=== PATIENT | female | born 1950 | race Two or more races ===

== ENCOUNTER → 2024-08-31 | Outpatient (CLI) | payer MEDICARE, MEDICAID, SELFPAY ==
[2024-08-30 13:34] LABS: Basophils # (Auto) 0.1 Thou/mm3 (0.0-0.2); Basophils % (Auto) 1 % (0-2.5); Eosinophils # (Auto) 0.2 Thou/mm3 (0.0-0.5); Eosinophils % (Auto) 2 % (0-10); Hematocrit 34.7 % (36.0-46.0); Hemoglobin 11.9 g/dL (12.0-16.0); Immature Granulocytes % (Auto) 0 % (0-0); Immature Granulocytes Auto 0.02 Thou/mm3 (0.00-0.00); Lymphocytes # (Auto) 1.6 Thou/mm3 (1.0-4.8); Lymphocytes % (Auto) 21 % (10-50); Mean Corpuscular HGB Conc 34.3 g/dl (31.0-37.0); Mean Corpuscular Hemoglobin 33.4 pg (25.0-35.0); Mean Corpuscular Volume 98 fL (80-100); Monocytes # (Auto) 0.6 Thou/mm3 (0.0-0.8); Monocytes % (Auto) 7 % (0-12); Neutrophils # (Auto) 5.4 Thou/mm3 (1.8-7.7); Neutrophils % (Auto) 69 % (37-80); Nucleated Red Blood Cell % 0 /100 WBC (0); Platelet Count 138 Thou/mm3 (140-440); RDW Standard Deviation 46.5 fL (36.4-46.3); Red Blood Count 3.56 Miln/mm3 (4.00-5.20); White Blood Count 7.9 Thou/mm3 (3.6-11.0)
[2024-08-30 13:39] LABS: Partial Thromboplastin Time 30.3 Seconds (22.0-36.0); Prothrombin Time 11.3 Seconds (9.0-12.2)
--- NOTE | 2024-08-31 08:00 | XR_ITS ---
Examination: Thyroid sonography complete TECHNIQUE: Grayscale sonographic high resolution grayscale sonographic images thyroid lobes are carful analysis Exam date and time: August 31, 2024 0917 hours INDICATIONS: History thyroid nodules and thyroid biopsy FINDINGS: Right thyroid 7.0 x 3.3 x 3.3 cm Multiple right thyroid nodules, the largest with vascular in the lower pole right thyroid 4.3 x 3.6 x 3.9 cm Left thyroid 5.6 x 3.2 x 2.4 cm Thyroid nodules, including lower pole nodule 6 x 3 x 7 mm IMPRESSION: Bilateral thyroid nodules Vascular lower pole right thyroid nodule 4.3 x 3.6 x 3.9 cm, consider ultrasound-guided fine-needle aspiration of this nodule to exclude malignant cytology
--- NOTE | 2024-08-31 08:30 | XR_ITS ---
Examination: Ultrasound-guided fine needle percutaneous aspiration thyroid nodule, right thyroid nodule. Thyroid sonography, limited Exam date and time: August 31, 2024 0930 hours INDICATIONS: Thyroid sonogram August 31, 2024 large vascular lower pole right thyroid nodule. Technique: A timeout was completed verifying correct patient, procedure, site, positioning and special equipment if applicable. The patient was placed in supine position for the thyroid fine needle percutaneous aspiration The patient's right neck was prepped and draped in sterile fashion. Maximum barrier sterile technique, hand hygiene, ultrasound sterile technique. 1% lidocaine was used to anesthetize the skin and subcutaneous tissues to the patient's right thyroid nodule. Multiple fine needle aspirations were performed and multiple thyroid specimens placed in preservative according to the [employer] protocol. Specimens appears satisfactory. The attending radiologist was present for the entire procedure. Estimated blood loss 3 cc. The patient tolerated the procedure well and there were no complications. Impression: Successful ultrasound-guided fine-needle percutaneous aspiration thyroid nodule, lower pole right thyroid nodule.
== END | disposition home or self-care (01) ==
PROVIDERS: Radiology Diagnostic Radiology; PCP Family Medicine; Referring Provider Family Medicine; Visit Provider Family Medicine
DX: E04.2 Nontoxic multinodular goiter (principal); Z01.812 Encounter for preprocedural laboratory examination
CPT/HCPCS: 10005; 36415; 76536; 85025; 85610; 85730

== ENCOUNTER → 2024-11-16 | Outpatient (CLI) | payer MEDICARE, MEDICAID, SELFPAY ==
[2024-11-16 10:17] LABS: Collection Type, Urine Clean Catch
[2024-11-16 10:41] LABS: Basophils # (Auto) 0.1 Thou/mm3 (0.0-0.2); Basophils % (Auto) 1 % (0-2.5); Eosinophils # (Auto) 0.2 Thou/mm3 (0.0-0.5); Eosinophils % (Auto) 2 % (0-10); Hematocrit 37.3 % (36.0-46.0); Hemoglobin 12.5 g/dL (12.0-16.0); Immature Granulocytes % (Auto) 0 % (0-0); Immature Granulocytes Auto 0.03 Thou/mm3 (0.00-0.00); Lymphocytes # (Auto) 1.7 Thou/mm3 (1.0-4.8); Lymphocytes % (Auto) 22 % (10-50); Mean Corpuscular HGB Conc 33.5 g/dl (31.0-37.0); Mean Corpuscular Volume 95 fL (80-100); Monocytes # (Auto) 0.5 Thou/mm3 (0.0-0.8); Monocytes % (Auto) 7 % (0-12); Neutrophils # (Auto) 5.5 Thou/mm3 (1.8-7.7); Neutrophils % (Auto) 69 % (37-80); Nucleated Red Blood Cell % 0 /100 WBC (0); Platelet Count 157 Thou/mm3 (140-440); RDW Standard Deviation 48.2 fL (36.4-46.3); Red Blood Count 3.91 Miln/mm3 (4.00-5.20); White Blood Count 8.1 Thou/mm3 (3.6-11.0)
[2024-11-16 10:51] LABS: B-Type Natriuretic Peptide 55 pg/mL (0-100)
[2024-11-16 11:01] LABS: Alanine Aminotransferase 11 U/L (10-49); Albumin, Serum 4.6 gm/dL (3.4-4.8); Alkaline Phosphatase 75 U/L (46-116); Anion Gap 10 (7-16); Aspartate Amino Transferase 16 U/L (0-34); BUN/Creatinine Ratio 17 Ratio (12-20); Bilirubin,Direct 0.2 mg/dL (0.0-0.3); Bilirubin,Total 0.5 mg/dL (0.3-1.2); Blood Urea Nitrogen 26 mg/dL (9-23); Calcium 10.4 mg/dL (8.3-10.6); Carbon Dioxide 21.1 mMol/L (20.0-31.0); Cardiac Risk Estimate 3.2 RATIO (3.7-5.6); Chloride 108 mMol/L (98-107); Cholesterol 128 mg/dL (132-200); Creatinine (Component) 1.5 mg/dL (0.6-1.3); Glucose 107 mg/dL (74-106); HDL Cholesterol 40 mg/dL (40-60); LDL Cholesterol,Calculated 56 mg/dL (0-130); Osmolality,Calculated 282 (275-295); Phosphorous 3.5 mg/dL (2.4-5.1); Potassium 5.2 mMol/L (3.4-5.1); Sodium 139 mMol/L (136-145); Total Protein 6.7 gm/dL (5.7-8.2); Triglycerides 159 mg/dL (30-150); eGFR 36 See Note
[2024-11-16 12:23] LABS: Bacteria,Urine Rare; Bilirubin,Urine Negative (Negative); Blood,Urine Negative (Negative); Clarity,Urine Clear (Clear/Hazy); Color,Urine Lt-Yellow (Lt Yel-Yel); Glucose, Urine Negative (Negative); Hyaline Casts,Urine < 1 /hpf (0-1); Ketones,Urine Negative (Negative); Leukocyte Esterase,Urine Positive (Negative); Nitrite,Urine Negative (Negative); PH,Urine 5.5 (5.0-7.0); Protein,Urine Trace (Neg - Trace); RBC,Urine 3 /hpf (0-3); Specific Gravity,Urine 1.015 (1.001-1.035); Squamous Epithelial Cell,Urine 2 /hpf (0-5); Urobilinogen,Urine Negative mg/dL (0.0-1.0); WBC,Urine 24 /hpf (0-5)
== END | disposition home or self-care (01) ==
LOC: COPL 09:35
PROVIDERS: PCP Family Medicine; Referring Provider Internal Medicine Cardiovascular Disease; Visit Provider Internal Medicine Nephrology
DX: E78.5 Hyperlipidemia, unspecified (principal); I11.0 Hypertensive heart disease with heart failure; I50.9 Heart failure, unspecified
CPT/HCPCS: 36415; 80048; 80061; 80069; 80076; 81001; 83880; 84100; 85025

== ENCOUNTER 2025-01-10 08:45 | Outpatient (RCR) | payer MEDICARE, MEDICAID, SELFPAY ==
--- NOTE | 2025-01-10 09:00 | XR_ITS ---
Examination: Nuclear medicine bladder thyroid scan Exam date and time: October 12, 2024 0900 hours INDICATIONS: Hypercalcemia, diagnosis benign neoplasm parathyroid gland TECHNIQUE AND FINDINGS: Intravenous ministration 25 mCi technetium 99m sestamibi Pinhole and chest images obtained before hours Increased isotope activity overlying the lower pole left thyroid measuring at least 10 mm IMPRESSION: Positive for left parathyroid adenoma
== END 2025-01-15 23:59 | disposition home or self-care (01) ==
LOC: SNUC 08:45
PROVIDERS: PCP Family Medicine; Referring Provider Internal Medicine Nephrology; Visit Provider Internal Medicine Nephrology
DX: D35.1 Benign neoplasm of parathyroid gland (principal)
CPT/HCPCS: 78070; A9500

== ENCOUNTER → 2025-03-18 | Outpatient (CLI) | payer MEDICARE, MEDICAID, SELFPAY ==
[2025-03-18 09:24] LABS: Basophils # (Auto) 0.1 Thou/mm3 (0.0-0.2); Basophils % (Auto) 1 % (0-2.5); Eosinophils # (Auto) 0.2 Thou/mm3 (0.0-0.5); Eosinophils % (Auto) 3 % (0-10); Hematocrit 32.3 % (36.0-46.0); Hemoglobin 11.3 g/dL (12.0-16.0); Immature Granulocytes % (Auto) 0 % (0-0); Immature Granulocytes Auto 0.03 Thou/mm3 (0.00-0.00); Lymphocytes # (Auto) 1.6 Thou/mm3 (1.0-4.8); Lymphocytes % (Auto) 21 % (10-50); Mean Corpuscular Hemoglobin 33.1 pg (25.0-35.0); Mean Corpuscular Volume 95 fL (80-100); Monocytes # (Auto) 0.6 Thou/mm3 (0.0-0.8); Monocytes % (Auto) 8 % (0-12); Neutrophils # (Auto) 5.1 Thou/mm3 (1.8-7.7); Neutrophils % (Auto) 67 % (37-80); Nucleated Red Blood Cell % 0 /100 WBC (0); Platelet Count 121 Thou/mm3 (140-440); RDW Standard Deviation 49.2 fL (36.4-46.3); Red Blood Count 3.41 Miln/mm3 (4.00-5.20); White Blood Count 7.5 Thou/mm3 (3.6-11.0)
[2025-03-18 09:33] LABS: Glucose Estimated Average 105 mg/dL (80-131); Hemoglobin A1C 5.3 % Hgb (4.8-6.0)
[2025-03-18 09:36] LABS: Parathyroid Hormone Intact 262.3 pg/ml (18.5-88.0)
[2025-03-18 09:41] LABS: Vitamin D 25 Hydroxy Total 36.2 ng/mL (7.3-40.2)
[2025-03-18 09:47] LABS: Albumin, Serum 4.5 gm/dL (3.4-4.8); Anion Gap 5 (7-16); BUN/Creatinine Ratio 13 Ratio (12-20); Blood Urea Nitrogen 20 mg/dL (9-23); Calcium 9.5 mg/dL (8.3-10.6); Calcium (Corrected) 9.5 mg/dL (8.5-10.1); Carbon Dioxide 21.7 mMol/L (20.0-31.0); Chloride 113 mMol/L (98-107); Creatinine (Component) 1.6 mg/dL (0.6-1.3); Glucose 122 mg/dL (74-106); Osmolality,Calculated 283 (275-295); Phosphorous 3.2 mg/dL (2.4-5.1); Potassium 4.6 mMol/L (3.4-5.1); Sodium 140 mMol/L (136-145); eGFR 34 See Note
== END | disposition home or self-care (01) ==
LOC: COPL 08:18
PROVIDERS: PCP Family Medicine; Referring Provider Internal Medicine Nephrology; Visit Provider Internal Medicine Nephrology
DX: E11.9 Type 2 diabetes mellitus without complications (principal); E78.5 Hyperlipidemia, unspecified; E55.9 Vitamin D deficiency, unspecified
CPT/HCPCS: 36415; 80069; 82306; 83036; 83970; 85025

== ENCOUNTER → 2025-07-19 | Outpatient (CLI) | payer MEDICARE, MEDICAID, SELFPAY ==
--- NOTE | 2025-07-19 14:00 | XR_ITS ---
Examination: Bone densitometry Date and time of exam: July 19, 2025, 1406 hours INDICATIONS: Menopause age 50 Technique: Lumbar spine and hip total bone mineralization values of an calculated. Peak reference and age match control results have been displayed. Findings: Lumbar spine total bone mineralization is 1.307 gm/cm2. This is 2.4 standard deviations above peak reference. This is 4.8 standard deviations above age-matched controls. Hip total bone mineralization is 0.740 gm/cm2 This is 1.7 standard deviations below peak reference. This is 0.2 standard deviations above age-matched controls Impression: There is normal mineralization based on lumbar spine measurements. There is osteoporosis based on hip measurements Lumbar mineralization is decreased 1.2% compared with 06/07/2022 Hip mineralization is decreased 9.6% compared with 06/07/2022
== END | disposition home or self-care (01) ==
LOC: CDIM 13:24
PROVIDERS: Referring Provider Internal Medicine Nephrology; Visit Provider Internal Medicine Nephrology
DX: M81.0 Age-related osteoporosis without current pathological fracture (principal)
CPT/HCPCS: 77080

== ENCOUNTER → 2025-08-05 | Outpatient (CLI) | payer MEDICARE, MEDICAID, SELFPAY ==
[2025-08-05 10:14] LABS: Collection Type, Urine Clean Catch
[2025-08-05 10:50] LABS: Glucose Estimated Average 105 mg/dL (80-131); Hemoglobin A1C 5.3 % Hgb (4.8-6.0)
[2025-08-05 10:51] LABS: Parathyroid Hormone Intact 234.3 pg/ml (18.5-88.0)
[2025-08-05 10:53] LABS: Albumin, Serum 4.7 gm/dL (3.4-4.8); Anion Gap 8 (7-16); BUN/Creatinine Ratio 11 Ratio (12-20); Blood Urea Nitrogen 17 mg/dL (9-23); Calcium 8.3 mg/dL (8.3-10.6); Calcium (Corrected) 8.3 mg/dL (8.5-10.1); Carbon Dioxide 23.4 mMol/L (20.0-31.0); Chloride 111 mMol/L (98-107); Creatinine (Component) 1.6 mg/dL (0.6-1.3); Glucose 112 mg/dL (74-106); Osmolality,Calculated 285 (275-295); Phosphorous 3.6 mg/dL (2.4-5.1); Potassium 4.2 mMol/L (3.4-5.1); Sodium 142 mMol/L (136-145); eGFR 33 See Note
[2025-08-05 10:53] LABS: Bacteria,Urine Rare; Bilirubin,Urine Negative (Negative); Blood,Urine Negative (Negative); Clarity,Urine Clear (Clear/Hazy); Color,Urine Lt-Yellow (Lt Yel-Yel); Glucose, Urine Negative (Negative); Ketones,Urine Negative (Negative); Leukocyte Esterase,Urine Positive (Negative); Nitrite,Urine Negative (Negative); PH,Urine 5.5 (5.0-7.0); Protein,Urine Trace (Neg - Trace); RBC,Urine 4 /hpf (0-3); Specific Gravity,Urine 1.015 (1.001-1.035); Squamous Epithelial Cell,Urine 6 /hpf (0-5); Urobilinogen,Urine Negative mg/dL (0.0-1.0); WBC,Urine 23 /hpf (0-5)
[2025-08-05 10:59] LABS: Vitamin B12 301 pg/mL (211-911); Vitamin D 25 Hydroxy Total 39.1 ng/mL (7.3-40.2)
[2025-08-05 11:02] LABS: Culture Indicated,Urine Yes
[2025-08-05 14:50] LABS: Basophils # (Auto) 0.1 Thou/mm3 (0.0-0.2); Basophils % (Auto) 1 % (0-2.5); Eosinophils # (Auto) 0.1 Thou/mm3 (0.0-0.5); Eosinophils % (Auto) 2 % (0-10); Hematocrit 33.7 % (36.0-46.0); Hemoglobin 11.4 g/dL (12.0-16.0); Immature Granulocytes Auto 0.02 Thou/mm3 (0.00-0.00); Lymphocytes # (Auto) 1.4 Thou/mm3 (1.0-4.8); Lymphocytes % (Auto) 20 % (10-50); Mean Corpuscular HGB Conc 33.8 g/dl (31.0-37.0); Mean Corpuscular Hemoglobin 32.9 pg (25.0-35.0); Mean Corpuscular Volume 97 fL (80-100); Monocytes # (Auto) 0.5 Thou/mm3 (0.0-0.8); Monocytes % (Auto) 7 % (0-12); Neutrophils # (Auto) 4.9 Thou/mm3 (1.8-7.7); Neutrophils % (Auto) 70 % (37-80); Nucleated Red Blood Cell # 0.00 Thou/mm3 (0.00-0.00); Nucleated Red Blood Cell % 0 /100 WBC (0); Platelet Count 135 Thou/mm3 (140-440); RDW Standard Deviation 46.9 fL (36.4-46.3); Red Blood Count 3.47 Miln/mm3 (4.00-5.20); White Blood Count 7.0 Thou/mm3 (3.6-11.0)
== END | disposition home or self-care (01) ==
LOC: COPL 09:13
PROVIDERS: PCP Family Medicine; Referring Provider Internal Medicine Nephrology; Visit Provider Internal Medicine Nephrology
DX: E11.22 Type 2 diabetes mellitus with diabetic chronic kidney disease (principal); N18.30 Chronic kidney disease, stage 3 unspecified; E55.9 Vitamin D deficiency, unspecified; N39.0 Urinary tract infection, site not specified
CPT/HCPCS: 36415; 80069; 81001; 82306; 82607; 83036; 83970; 85025; 87077; 87086; 87186